=== PATIENT | female | born 1965 | race Two or more races ===

== ENCOUNTER 2024-02-13 14:24 | Outpatient (CLI) | payer BC, SELFPAY ==
--- OUTSIDE RECORDS SUMMARY | 2024-02-13 14:27 | XMS_ITS | Referral Summary ---
Author Organization [facility] Address [address] [place] [address] Care Team Providers Care Exchange Underwriting Consultant Name Role Phone Aye Morales M.D. Primary Care Provider Source Comments Patient records contain information from all sites at [facility]. For routine questions regarding patient records, call [phone] during business hours, M-F 8:00 AM - 5:00 PM Central Time. Record requests for emergency care only can be directed to [phone] at any time.[facility] Encounters Date Type Department Care Team Description 12/18/2023 Clinical Communication Department of Family Medicine, [facility], in [place], [place] [address] [address] Aye Morales M.D. 12/05/2023 Clinical Communication Department of Family Medicine, [facility], in [place], [place] [address] [address] Aye Morales M.D. Health Maintenance 12/05/2023 Orders Only Department of Family Medicine, [facility], in [place], [place] [address] [address] Aye Morales M.D. Diabetes Mellitus Type 2 Hyperglycemia (HCC) (Primary Dx) 12/04/2023 Orders Only [facility] SELF TEST [facility] [address] [id number] Aye Morales M.D. Screening Cancer Colon 11/27/2023 Clinical Communication Department of Family [facility], [facility], in [place], [place] [address] [address] Lashanda Ashton R.M.A. Quality (Diabetes) 11/23/2023 Clinical Communication Department of Family Medicine, [facility], in [address] [address] Aye Morales M.D. Results (Labs) 11/23/2023 12:48 PM CDT - 11/23/2023 11:59 PM CDT Hospital Encounter Department of Laboratory Medicine in [address] [address] Aye Morales M.D. Diabetes Mellitus Type 2 Hyperglycemia (HCC); Hyperlipidemia Discharge Disposition: Home or Self Care 11/23/2023 11:30 AM CDT Comprehensive Visit Department of [facility], [facility], in [address] [address] Aye Morales M.D. Diabetes Mellitus Type 2 Hyperglycemia (HCC) (Primary Dx); General Medical Examination Adult; Hyperlipidemia; Rosacea; Pain Back Thoracic 11/20/2023 Orders Only [facility] SELF TEST [facility] [address] [place] [id number] Aye Morales M.D. Screening Cancer Colon from Last 3 Months Allergies No known active allergies Medications Medication Sig Dispensed Refills Start Date End Date Status atorvastatin (LIPITOR) 20 mg tablet Take 20 mg by mouth daily. 09/25/2023 Active azelaic acid (FINACEA) 15 % gel 10/26/2023 Active doxycycline (MONODOX) 50 mg capsule TAKE 1 CAPSULE BY MOUTH ONCE A DAY FOR ONE MONTH. TAKE WITH FOOD AND PROBIOTIC 10/26/2023 Active famotidine (PEPCID) 20 mg tablet Take 20 mg by mouth 2 (two) times a day. 09/25/2023 Active glipiZIDE (GLUCOTROL XL) 2.5 mg 24 hr tablet TAKE 2 TABLETS BY MOUTH EVERY DAY FOR DIABETES 09/25/2023 Active metFORMIN (GLUCOPHAGE) 500 mg tablet TAKE 2 TABLETS BY MOUTH EVERY DAY IN THE EVENING WITH MEAL FOR 2 WEEKS 09/04/2023 Active sulfacetamide sodium-sulfur (AVAR) 10-5 % (w/w) cleanser 11/14/2023 Act miguel Active Problems Problem Noted Date Diagnosed Date Diabetes Mellitus Type 2 Hyperglycemia Hyperlipidemia 11/23/2023 Rosacea 11/23/2023 Immunizations Name Administration Dates Next Due SARS-COV-2 (COVID-19) - PFIZ ER (Discontinued)(12 years or older) 10/29/2020,10/08/2020 Tdap 11/10/2023 Social History Tobacco Use Types Packs/Day Years Used Date Smoking Tobacco: Never Smokeless Tobacco: Never Dental Answer Date Recorded Dental: Regular Dentist Unknown 10/16/19 Sex and Gender Information Value Date Recorded Sex Assigned at Not on file Gender Identity Not on file Sexual Orientation Not on file Last Filed Vital Signs Vital Sign Reading Time Taken Comments Blood Pressure 123/80 11/23/2023 11:32 AM CDT Pulse 66 11/23/2023 11:32 AM CDT Temperature 36.6 ??C (97.8 ??F) 11/23/2023 11:32 AM C DT Respiratory Rate - - Oxygen Saturation - - Inhaled Oxygen Concentration - - Weight 64.9 kg (143 lb 1.3 oz) 11/23/2023 11:32 AM CDT Height 148 cm (4' 10.27) 11/23/2023 11:32 AM CD T Body Mass Index 29.63 11/23/2023 11:32 AM CDT Plan of Treatment Not on file Procedures Procedure Name Priority Date/Time Associated Diagnosis Comments LIPID PANEL, S Routine 11/23/2023 12:55 PM CDT Hyperlipidemia HEMOGLOBIN A1C, B Routine 11/23/2023 12: 55 PM CDT Diabetes Mellitus Type 2 Hyperglycemia (HCC) BASIC METABOLIC PANEL, S/P Routine 09/01/2013 12:22 PM CDT from Last 3 Months or Most Recently Relevant to Health Maintenance Results * (ABNORMAL) Lipid Panel (11/23/2023 12:55 PM CDT) Triglycerides 240(H) mg/dL 11/23/2023 1:34 PM CDT OWAT Comment: ----REFERENCE VALUE---- Normal: <150 mg/dL Borderline High: 150-199 mg/dL High: 200-499 mg/dL Very High: > or =500 mg/dL Cholesterol, Total 208(H) mg/dL 2023 1:34 PM CDT OWAT Comment: ----REFERENCE VALUE---- Desirable: < 200 mg/dL Borderline High: 200 - 239 mg/dL High: > or = 240 mg/dL Cholesterol, LDL, Calculated 112 mg/dL 11/23/2023 1:34 PM CDT OWAT Comment: ----REFERENCE VALUE---- Desirable: <100 mg/dL Above Desirable: 100-129 mg/dL Borderline High: 130-159 mg/dL High: 160-189 mg/dL Very High: >=190 mg/dL ----ADDITIONAL INFORMATION---- LDL cholesterol calculated using the Keith/NIH equation. Cholesterol, HDL 55 >=50 mg/dL 11/23/19 1:34 PM CDT OWAT Cholesterol, Non-HDL, Calculated 153 mg/dL 11/23/2023 1:34 PM CDT OWAT Comment: ----REFERENCE VALUE---- Desirable: <130 mg/dL Above Desirable: 130-159 mg/dL Borderline High: 160-189 mg/dL High: 190-219 mg/dL Very High: > or =220 mg/dL Fasting (8 HR or more) No 11/23/2023 12:55 PM CDT OWAT Blood (Blood, Venous) 11/23/2023 12:55 PM CDT 11/23/2023 12:59 PM CDT Aye Morales M.D. LAB BLOOD ADD-ON [facility] [address] [place] [address], [place] OWAT [facility] in [place] [address] [place] [address] * (ABNORMAL) Hemoglobin A1c (11/23/2023 12:55 PM CDT) Hemoglobin A1c, B 10.0(H) 4.2 - 5.6 % 11/23/2023 1:54 PM CDT OW Comment: Hemoglobin A1c values greater than or equal to 6.5 percent are diagnostic for diabetes mellitus. ??Diagnosis should be confirmed by repeat testing. ??In diabetic patients, HbA1c goals should be discussed with healthcare provider. Blood (Blood, Venous) 11/23/2023 12:55 PM CDT 11/23/2023 12:59 PM CDT Aye Morales M.D. LAB BLOOD ADD-ON [facility] [address] [place] [address], [place] OWAT [facility] in [place] [address] [place] [address] * (ABNORMAL) BMP (Basic Metabolic Panel) (09/01/2013 12:22 PM CDT) Sodium, S 138 135 - 145 MMOLL POWERCHART Potassium, S 4.0 3.5 - 5.1 MMOLL POWERCHART Chloride, S 103 98 - 107 MMOLL POWERCHART CO2 Total 30(H) 22 - 29 MMOLL POWERCHART Glucose 113 70 - 140 MGDL POWERCHART BUN (Blood Urea Nitrogen), S 12 6 - 24 MGDL POWERCHART Creatinine 0.8 0.5 - 1.0 MGDL POWERCHART Calcium, Total, S 9.7 8.6 - 10.2 MGDL POWERCHART Anion Gap 5(L) 7 - 15 MMOLL POWERCHART HXeGFR (MDRD) >60 >=60 POWERCHART Comment: Results are in mL/min/1.73m squared CKD Stage I: ? GFR > 90 CKD Stage II: ?GFR 60 to 89 CKD Stage III: ? GFR 30 to 59 CKD Stage IV: ? GFR 15 to 29 CKD Stage V: ?GFR < 15 or Dialysis eGFR Black/ >60 >=60 POWERCHART Blood 09/01/2013 12:2 2 PM CDT Historical Provider LAB BLOOD ADD-ON POWERCHART from Last 3 Months or Most Recently Relevant to Health Maintenance Care Teams Exchange Underwriting Consultant Relationship Specialty Start Date End Date Aye Morales M.D. [address] [place] [phone] PCP - General Family Medicine 11/19/23
--- OUTSIDE RECORDS SUMMARY | 2024-02-13 14:27 | XMS_ITS | Encounter Summary ---
Author Organization [facility] Address [address] [place] [address] Care Team Providers Care Interlocking Tower Operator Name Role Phone Aye Morales M.D. Primary Care Provider Encounter Details Date Type Department Care Team (Latest Contact Info) Description 11/23/2023 12:48 PM CDT - 11/23/2023 11:59 PM CDT Hospital Encounter Department of Laboratory Medicine in [place], [place] [address] [place] [phone] Aye Morales M.D. [address] [place] [address] Diabetes Mellitus Type 2 Hyperglycemia (HCC); Hyperlipidemia Discharge Disposition: Home or Self Care Social History Tobacco Use Types Packs/Day Years Used Date Smoking Tobacco: Never Smokeless Tobacco: Never Dental Answer Date Recorded Dental: Regular Dentist Unknown 10/16/19 21 Sex and Gender Information Value Date Recorded Sex Assigned at Not on file Gender Identity Not on file Sexual Orientation Not on file documented as of this encounter Medications at Time of Discharge Medication Sig Dispensed Refills Start Date End Date atorvastatin (LIPITOR) 20 mg tablet Take 20 mg by mouth daily. 09/25/2023 azelaic acid (FINACEA) 15 % gel 10/26/2023 doxycycline (MONODOX) 50 mg capsule TAKE 1 CAPSULE BY MOUTH ONCE A DAY FOR ONE MONTH. TAKE WITH FOOD AND PROBIOTIC 10/26/2023 famotidine (PEPCID) 20 mg tablet Take 20 mg by mouth 2 (two) times a day. 09/25/2023 glipiZIDE (GLUCOTROL XL) 2.5 mg 24 hr tablet TAKE 2 TABLETS BY MOUTH EVERY DAY FOR DIABETES 09/25/2023 metFORMIN (GLUCOPHAGE) 500 mg tablet TAKE 2 TABLETS BY MOUTH EVERY DAY IN THE EVENING WITH MEAL FOR 2 WEEKS 09/04/2023 sulfacetamide sodium-sulfur (AVAR) 10-5 % (w/w) cleanser 11/14/2023 documented as of this encounter Plan of Treatment Not on file documented as of this encounter Procedures Procedure Name Priority Date/Time Associated Diagnosis Comments LIPID PANEL, S Routine 11/23/2023 12:55 PM CDT Hyperlipidemia HEMOGLOBIN A1C, B Routine 11/23/2023 12: 55 PM CDT Diabetes Mellitus Type 2 Hyperglycemia (HCC) documented in this encounter Results * (ABNORMAL) Lipid Panel (11/23/2023 12:55 [...] CDT Aye Morales M.D. LAB BLOOD ADD-ON Performing Organization Address [facility] Co de Phone Number [facility] [address] [place] [address], [place] OWAT [facility] in [place] [address] [place] [address] * (ABNORMAL) Hemoglobin A1c (11/23/2023 12:55 PM CDT) Hemoglobin A1c, B 10.0(H) 4.2 - 5.6 % 11/23/2023 1:54 PM CDT OWAT Comment: Hemoglobin A1c values greater than or equal to 6.5 percent are diagnostic for diabetes mellitus. ??Diagnosis should be confirmed by repeat testing. ??In diabetic patients, HbA1c goals should be discussed with healthcare provider. Blood (Blood, Venous) 11/23/2023 12:55 PM CDT 11/23/2023 12:59 PM CDT Aye Morales M.D. LAB BLOOD ADD-ON Performing Organization Address [facility] Co de Phone Number [facility] [address] [place] [address], [place] OWAT [facility] in [place] [address] [place] [address] documented in this encounter Visit Diagnoses Diagnosis Diabetes Mellitus Type 2 Hyperglycemia (HCC) Hyperlipidemia documented in this encounter Care Teams Interlocking Tower Operator Relationship Specialty Start Date End Date Aye Morales M.D. [address] [place] [address] PCP - General Family Medicine 11/19/23 documented as of this encounter
--- OUTSIDE RECORDS SUMMARY | 2024-02-13 14:27 | XMS_ITS | Encounter Summary ---
Author Organization [facility] Address [address] [place] [address] Care Team Providers Care Gas Pumper Name Role Phone Aye Morales M.D. Primary Care Provider Encounter Details Date Type Department Care Team (Late st Contact Info) Description 12/18/2023 Clinical Communication Department of Family Medicine, [facility], in [place], [place] [address], [place] [address] Aye Morales M.D. [address] [place] [address] Social History Tobacco Use Types Packs/Day Years Used Date Smoking Tobacco: Never Smokeless Tobacco: Never Dental Answer Date Recorded Dental: Regular Dentist Unknown 10/16/19 21 Sex and Gender Information Value Date Recorded Sex Assigned at Not on file Gender Identity Not on file Sexual Orientation Not on file documented as of this encounter Miscellaneous Notes * Telephone Encounter - Kristine Medrano - 12/18/2023 2:44 PM CDT I reached out to the patient today via phone call and I was unable to reach the patient. This is the 2nd contact by the [facility] team to schedule preventive care services. The preventive care topics I outreached about include: Cervical Cancer Screening Hemoglobin A1C and Urine, Albumin Mammogram The outcome of this communication includes: Left Message The [facility] team will contact the patient again next time they're due for preventive care. Next Primary Care appointment: does not have a visit scheduled in Primary Care within the next 3 months Last appointment with their PCP: 11/23/2023 Additional services offered: Harriett Hwang Preventative Health Specialist documented in this encounter Plan of Treatment Not on file documented as of this encounter Visit Diagnoses Not on filedocumented in this encounter Care Teams Gas Pumper Relationship Specialty Start Date End Date Aye Morales M.D. [address] [place] [phone] PCP - General Family Medicine 11/19/23 documented as of this encounter
--- OUTSIDE RECORDS SUMMARY | 2024-02-13 14:27 | XMS_ITS | Encounter Summary ---
Author Organization [facility] Address [address] [place] [address] Care Team Providers Care Technology Coordinator Name Role Phone Aye Morales M.D. Primary Care Provider Encounter Details Date Type Department Care Team (Late st Contact Info) Description 12/05/2023 Orders Only Department of Family Medicine, [facility] [place], in [place], [place] [address] [place] [phone] Aye Morales M.D. [address], [place] [address] Diabetes Mellitus Type 2 Hyperglycemia (HCC) (Primary Dx) Social History Tobacco Use Types Packs/Day Years Used Date Smoking Tobacco: Never Smokeless Tobacco: Never Dental Answer Date Recorded Dental: Regular Dentist Unknown 10/16/19 21 Sex and Gender Information Value Date Recorded Sex Assigned at Not on file Gender Identity Not on file Sexual Orientation Not on file documented as of this encounter Plan of Treatment Scheduled Orders Name Type Priority Associated Diagnoses Orde r Schedule Albumin, Random, Urine Lab Routine Diabetes Mellitus Type 2 Hyperglycemia (HCC) Expected: 12/05/2023, Expires: 03/06/2025 documented as of this encounter Visit Diagnoses Diagnosis Diabetes Mellitus Type 2 Hyperglycemia (HCC)- Primary documented in this encounter Care Teams Technology Coordinator Relationship Specialty Start Date End Date Aye Morales M.D. [address] [phone] PCP - General Family Medicine 11/19/23 documented as of this encounter
--- OUTSIDE RECORDS SUMMARY | 2024-02-13 14:27 | XMS_ITS | Encounter Summary ---
Author Organization [facility] Address [address] [place] [address] Care Team Providers Care Tracing Lathe Set Up Operator Name Role Phone Aye Morales M.D. Primary Care Provider Reason for Visit * Reason Onset Date Comments Health Maintenance 12/05/2023 Encounter Details Date Type Department Care Team (Latest Contact Info) Description 12/05/2023 Clinical Communication Department of Family Medicine, [facility], in [place], [place] [address] [place] [address] Aye Morales M.D. [address] [place] [address] Health Maintenance Social History Tobacco Use Types Packs/Day Years Used Date Smoking Tobacco: Never Smokeless Tobacco: Never Dental Answer Date Recorded Dental: Regular Dentist Unknown 10/16/19 21 Sex and Gender Information Value Date Recorded Sex Assigned at Not on file Gender Identity Not on file Sexual Orientation Not on file documented as of this encounter Miscellaneous Notes * Telephone Encounter - Kristine Medrano - 12/05/2023 11:40 AM CDT I reached out to the patient today via phone call and letter and I was unable to reach the patient.This is the 1st contact by the [facility] team to schedule preventive care services. The preventive care topics I outreached about include: Cervical Cancer Screening Hemoglobin A1C and Urine, Albumin Mammogram The outcome of this communication includes: Left Message and Sent Letter The [facility] team will contact the patient again in 2 weeks. Next Primary Care appointment: does not have a visit scheduled in Primary Care within the next 3 months Last appointment with their PCP: 11/23/2023 Additional services offered: Harriett Hwang Preventative Health Specialist documented in this encounter Plan of Treatment Not on file documented as of this encounter Visit Diagnoses Not on filedocumented in this encounter Care Teams Tracing Lathe Set Up Operator Relationship Specialty Start Date End Date Aye Morales M.D. [address] [place] [phone] PCP - General Family Medicine 11/19/23 documented as of this encounter
--- OUTSIDE RECORDS SUMMARY | 2024-02-13 14:27 | XMS_ITS ---
Author Organization [facility] Address [address] [place] [address] Care Team Providers Care Generator Assembler Name Role Phone Unavailable Unavailable Unavailable Surgery Details Not on file Complications Check Surgery Details section. Procedure Estimated Blood Loss Check Surgery Details section. Procedure Findings Check Surgery Details section. Procedure Specimens Taken Check Surgery Details section.
--- OUTSIDE RECORDS SUMMARY | 2024-02-13 14:27 | XMS_ITS | Clinical Summary ---
Author Organization Consumer Agent Portal (CAP) [facility] Address [place], [place] [address] Care Team Providers Care Waiter/Waitress Economy Class Name Role Phone Jaja Garcia RN, HEARING THERAPY DIRECTOR Primary Care Provide r Allergies No known active allergies Active Problems Problem Noted Date Diagnosed Date Obesity, unspecified 05/20/2012 Family History Medical History Relation Name Comments Cancer-breast No Family History Relation Name Status Comments Brother 1 Alive Brother 2 Alive Brother 3 Alive Brother 4 Alive Father Alive Maternal Grandfather Maternal Grandmother Mother Alive Paternal Grandfather Paternal Grandmother Sister 1 Alive Sister 2 Alive Sister 3 Alive Sister 4 Alive Sister 5 Alive Sister 6 Alive Social History Tobacco Use Types Packs/Day Years Used Date Smoking Tobacco: Never Smokeless Tobacco: Never Alcohol Use Standard Drinks/Week Comments No 0 (1 standard drink = 0.6 oz pur e alcohol) Sex and Gender Information Value Date Recorded Sex Assigned at Not on file Gender Identity Not on file Sexual Orientation Not on file Obstetrics History Last Filed Vital Signs Vital Sign Reading Time Taken Comments Blood Pressure 120/64 05/20/2012 9:02 AM ESCROW PROCESSOR Pulse 72 05/20/2012 9:02 AM ESCROW PROCESSOR Temperature - - Respiratory Rate 14 05/20/2012 9:02 AM ESCROW PROCESSOR Oxygen Saturation - - Inhaled Oxygen Concentration - - Weight 60.3 kg (133 lb) 05/20/2012 9:02 AM ESCROW PROCESSOR Height 135.5 cm (4' 5.34) 05/20/2012 9:02 AM CS T Body Mass Index 32.87 05/20/2012 9:02 AM ESCROW PROCESSOR Plan of Treatment Health Maintenance Due Date Last Done Comments Tdap 08/26/1978 Depression screening for age 12+ 1979 HIV for age 15-65 08/26/1982 BMI (ht and wt on same day) for age 18+ 08/26/1985 Hepatitis C screening for age 18-79 08/26/1985 Tetanus booster 1987 Zoster (shingles) series for age 50+ (1 of 2) 08/26/2017 Mammogram for age 45-75 10/08/2021 10/09/19 21, 05/28/2012, 08/19/2010 COVID-19 vaccine series (2022-24 season) 2024 10/29/2020, 10/08/2020 Influenza for age 50-64 02/10/2024 Fecal testing non-DNA (FIT,FOBT,iFOBT) for age 45-75 06/14/2024 06/14/2023, 08/06/2020 Pap test for age 21-65 03/08/2025 , 03/08/2022, 04/15/2018, Additional history exists Lipids for age 45-75 06/12/2028 06/12/2023, 01/09/2023, 10/12/2022, Additional history exists Pneumococcal series for age 6-64 Aged Out No longer eligible based on patient's age to complete this topic Procedures Procedure Name Priority Date/Time Associated Diagnosis Comments OCCULT BLOOD IFOBT STOOL Routine 06/14/2023 10:30 AM ESCROW PROCESSOR LIPID PANEL Routine 06/12/2023 9:44 AM ESCROW PROCESSOR HPV THIN PREP Routine 03/08/2022 10:00 AM CDT XR MAMMO YVES BILAT SCREEN Routine 10/08/2020 10:41 AM CDT Encounter for screening mammogram for malignant neoplasm of breast from Last 3 Months or Most Recently Relevant to Health Maintenance Results * OCCULT BLOOD IFOBT STOOL (06/14/2023 10:30 AM ESCROW PROCESSOR) STOOL BLOOD ,IFOBT Negative Negative 06/15/2023 1:16 PM ESCROW PROCESSOR [facility] Stool STOOL SPECIMEN / Unknown 06/14/2023 10:30 AM ESCROW PROCESSOR 06/15/2023 1:07 PM ESCROW PROCESSOR Jaja Garcia RN, HEARING THERAPY DIRECTOR LABORATORY [facility] [address] [place] [address] * (ABNORMAL) LIPID PANEL (06/12/2023 9:44 AM ESCROW PROCESSOR) CHOLESTEROL,TOTAL 233(H) 100 - 199 mg/dL 06/13/2023 12:35 PM ESCROW PROCESSOR [facility] Comment: Cholesterol, Total Reference Ranges Desirable <200 mg/dL Borderline 200-239 mg/dL High >=240 mg/dL TRIGLYCERIDES 313(H) <150 mg/dL 06/13/2023 12:35 PM ESCROW PROCESSOR [facility] HDL CHOLESTEROL 53 >40 mg/dL 12:35 PM ESCROW PROCESSOR [facility] NON-HDL CHOLESTEROL 180(H) <145 mg/dl 06/13/2023 12:35 PM ESCROW PROCESSOR [facility] CHOL/HDL RATIO 4.40 <4.50 06/13/2023 12:35 PM ESCROW PROCESSOR [facility] LDL CHOLESTEROL 117 <=130 mg/dL 06/13/2023 12:35 PM ESCROW PROCESSOR [facility] VLDL CHOLESTEROL 63(H) <=30 mg/dL 06/13/2023 12:35 PM ESCROW PROCESSOR [facility] PROVIDER ORDERED STATUS RANDOM 06/13/2023 12:35 PM ESCROW PROCESSOR [facility] Blood BLOOD SPECIMEN / Unknown 06/12/2023 9:44 AM ESCROW PROCESSOR 06/12/2023 3:17 PM ESCROW PROCESSOR Jaja Garcia RN, HEARING THERAPY DIRECTOR CHEMISTRY [facility] [address] [place] [address], [facility] [address] [place] [address] * HPV HIGH RISK (03/08/2022 10:00 AM CDT) TYPE 16 Negative Negative 03/14/2022 11:45 AM CDT [facility] TYPE 18 Negative Negative 03/14/2022 11:45 AM CDT [facility] OTHER HIGH RISK TYPES Negative Negative 03/14/2022 11:45 AM CDT [facility] Other (Other) 03/08/2022 10: 00 AM CDT 03/13/2022 8:11 AM CDT Narrative [facility] - 03/14/2022 11:45 AM CDT HPV types 16, 18, 31, 33, 35, 39, 45, 51, 52, 56, 58, 59, 66 and 68 DNA were undetectable or below the pre-set threshold. Methodology: Embarkly Chuck 4800 HPV Test Lolita Leon NP MICROBIOLOGY [facility] [address] [place] [address], [place] * XR MAMMO YVES BILAT SCREEN (10/08/2020 10:41 AM CDT) Anatomical Region Laterality Modality BREASTS, Breast Left, Breast Right Bilateral Mammography Impressions 10/08/2020 11:31 AM CDT ??There is no radiographic evidence for malignancy. ??Recommend annual mammograms. MAMMOGRAM ASSESSMENT: ??ACR 2 Benign PATIENTS: You will also receive a letter with your examination results in an easy to read format. ??If you have questions about your results, please contact your referring provider. Narrative 10/08/2020 11:31 AM CDT XR MAMMO YVES BILAT SCREEN [[id number]] CLINICAL HISTORY: ??This is an asymptomatic 55 y.o. patient. INDICATION FOR EXAM: Mammogram Screening. TECHNIQUE: CC & MLO views were obtained. ??This digital study was evaluated with the assistance of Computer-Aided Detection. Breast Tomosynthesis was used in interpretation. COMPARISON FILMS: Yes 05/28/12 Consumer Agent Portal (CAP) ?? FINDINGS: ??The breasts are heterogeneously dense, which may obscure small masses. ??No suspicious masses or microcalcifications. ??Benign appearing calcifications within both breasts. Jaja Gacria RN, HEARING THERAPY DIRECTOR MAMMO from Last 3 Months or Most Recently Relevant to Health Maintenance Care Teams Waiter/Waitress Economy Class Relationship Specialty Start Date End Date Jaja Garcia RN, HEARING THERAPY DIRECTOR PCP - General Nurse Practitioner 04/15/18
--- OUTSIDE RECORDS SUMMARY | 2024-02-13 14:27 | XMS_ITS | Encounter Summary ---
Author Organization [facility] Address [address] [place] [address] Care Team Providers Care Lpn Per Diem Name Role Phone Aye Morales M.D. Primary Care Provider Encounter Details Date Type Department Care Team (Late st Contact Info) Description 11/20/2023 Orders Only [facility] SELF [facility] [address] [place] [id number] Aye Morales M.D. [address] [place] [phone] Screening Cancer Colon Social History Tobacco Use Types Packs/Day Years [...] Type Priority Associated Diagnoses Orde r Schedule Cologuard - Sent Out Lab Lab Routine Screening Cancer Colon Expected: 12/04/2023, Expires: 02/19/2025 documented as of this encounter Visit Diagnoses Diagnosis Screening Cancer Colon documented in this encounter Care Teams Lpn Per Diem Relationship Specialty Start Date End Date Aye Morales M.D. [address] [phone] PCP - General Family Medicine 11/19/23 documented as of this encounter
--- OUTSIDE RECORDS SUMMARY | 2024-02-13 14:27 | XMS_ITS | Encounter Summary ---
Author Organization [facility] Address [address] [place] [address] Care Team Providers Care Study Director Name Role Phone Aye Morales M.D. Primary Care Provider Reason for Visit * Reason Onset Date Comments Quality 11/27/2023 Diabetes Encounter Details Date Type Department Care Team (Latest Contact Info) Description 11/27/2023 Clinical Communication Department of Family Medicine, [facility], in [place], [place] [address] [place] [address] Lashanda Ashton, R.M.A. Quality (Diabetes) Social History Tobacco Use Types Packs/Day Years Used Date Smoking Tobacco: Never Smokeless Tobacco: Never Dental Answer Date Recorded Dental: Regular Dentist Unknown 10/16/19 21 Sex and Gender Information Value Date Recorded Sex Assigned at Not on file Gender Identity Not on file Sexual Orientation Not on file documented as of this encounter Miscellaneous Notes * Telephone Encounter - Lashanda Ashton, R.MLennyA. - 11/27/2023 3:31 PM CDT In reviewing the patient's diabetic quality metrics, I have found that the patient is not meeting all of their goals. A1C control not met Orders are not entered. Pended A1c. documented in this encounter Plan of Treatment Scheduled Orders Name Type Priority Associated Diagnoses Orde r Schedule Hemoglobin A1c Lab Routine Diabetes Mellitus Type 2 Hyperglycemia (HCC) Expected: 11/29/2023, Expires: 02/26/2025 documented as of this encounter Visit Diagnoses Diagnosis Diabetes Mellitus Type 2 Hyperglycemia (HCC)- Primary documented in this encounter Care Teams Study Director Relationship Specialty Start Date End Date Aye Morales M.D. [address] [place] [phone] PCP - General Family Medicine 11/19/23 documented as of this encounter
--- OUTSIDE RECORDS SUMMARY | 2024-02-13 14:27 | XMS_ITS | Encounter Summary ---
Author Organization [facility] Address [address] [place] [address] Care Team Providers Care Tool Liaison Name Role Phone Aye Morales M.D. Primary Care Provider Reason for Visit * Reason Onset Date Comments Results 11/23/2023 Labs Encounter Details Date Type Department Care Team (Latest Contact Info) Description 11/23/2023 Clinical Communication Department of Family Medicine, [facility], in [place], [place] [address], [place] [address] Aye Morales M.D. [address], [place] [address] Results (Labs) Social History Tobacco Use Types Packs/Day Years Used Date Smoking Tobacco: Never Smokeless Tobacco: Never Dental Answer Date Recorded Dental: Regular Dentist Unknown 10/16/19 21 Sex and Gender Information Value Date Recorded Sex Assigned at Not on file Gender Identity Not on file Sexual Orientation Not on file documented as of this encounter Miscellaneous Notes * Telephone Encounter - Leti Lewis L.P.NLenny - 12/04/2023 9:01 AM CDT Left message for patient to return call to clinic. Does the patient need to speak to nursing? yes Action needed: Dr. Aye Morales said, A1c has improved after resuming your medication from previous 11.9% in September 2023 to a current level of 10%. This is a good improvement over a short period of time and that number does include sometime that you were not taking medication so we are moving in the right direction. I do advise checking your blood sugar before the follow up in 3 months, at timesfasting and other x2 hours after meals. A goal for fasting is for your sugar to be less than 130. It would be ideal to have your sugar less than 180 at the 2 hour after a meal lorie. Your triglycerides are elevated. This is often seen in diabetes when sugar is high. Limit processedfoods in saturated fats. Starting and omega-3 fatty acid supplement can help with this. The most important thing that will lower this is improving your glucose control. Your LDL is currently a bit over goal at 112. With diabetes we want this to be less than 100 but for now this is okay as you have just recently resumed your medications. Nice to meet you today and we will see you in 3 months. The most effective medication that will lower your A1c is healthy food choices and regular physical activity. * Telephone Encounter - Shannan Pandya L.P.N. - 11/26/2023 8:[address] Aye Morales said, A1c has improved after resuming your medication from previous 11.9% in September 2023 to a current level of 10%. This is a good improvement over a short period of time and that number does include sometime that you were not taking medication so we are moving in the right direction. I do advise checking your blood sugar before the follow up in 3 months, at times fasting and other x2 hours after meals. A goal for fasting is for your sugar to be less than 130. It would be ideal to have your sugar less than 180 at the 2 hour after a meal lorie. Your triglycerides are elevated. This is often seen in diabetes when sugar is high. Limit processedfoods in saturated fats. Starting and omega-3 fatty acid supplement can help with this. The most important thing that will lower this is improving your glucose control. Your LDL is currently a bit over goal at 112. With diabetes we want this to be less than 100 but for now this is okay as you have just recently resumed your medications. Nice to meet you today and we will see you in 3 months. The most effective medication that will lower your A1c is healthy food choices and regular physical activity. documented in this encounter Plan of Treatment Not on file documented as of this encounter Visit Diagnoses Not on filedocumented in this encounter Care Teams Tool Liaison Relationship Specialty Start Date End Date Aye Morales M.D. [address] [place] [phone] PCP - General Family Medicine 11/19/23 documented as of this encounter
--- OUTSIDE RECORDS SUMMARY | 2024-02-13 14:27 | XMS_ITS | Encounter Summary ---
Author Organization [facility] Address [address] [place] [address] Care Team Providers Care Small Craft Operator Name Role Phone Aye Morales M.D. Primary Care Provider Reason for Referral * Outpatient (Routine) - Authorized Specialty Diagnoses / Procedures Referred By Melissa west Referred To Contact Family Medicine Aye Morales M.D. [address] [phone] [facility] Region Referral ID Status Reason Start Date Expiration Date V isits Requested Visits Authorized [id number] Authorized 11/23/2023 05/24/2025 1 1 * Outpatient (Routine) - Authorized Specialty Diagnoses / Procedures Referred By Melissa t Referred To Contact Diagnoses General Medical Examination Adult Procedures BI Breast Screening Bilateral with Tomosynthesis Aye Morales M.D. [address] [place] [phone] [facility] Region Referral ID Status Reason Start Date Expiration Date V isits Requested Visits Authorized [id number] Authorized 11/23/2023 11/22/2024 1 1 * Outpatient (Routine) - Pending Review Specialty Diagnoses / Procedures Referred By Contac t Referred To Contact Diagnoses General Medical Examination Adult Procedures Colonoscopy Aye Moralse M.D. [address] [place] [phone] [facility] Region Referral ID Status Reason Start Date Expiration Date V isits Requested Visits Authorized [id number] Pending Review 11/23/2023 11/22/2024 1 1 Reason for Visit * Reason Comments Establish Care * Appointment Request (Routine) - Closed Specialty Diagnoses / Procedures Referred By Melissa t Referred To Contact Family Medicine Referral ID Status Reason Start Date Expiration Date Visits Re quested Visits Authorized [id number] Closed 11/19/2023 11/18/2024 1 1 Encounter Details Date Type Department Care Team (Latest Contact Info) Description 11/23/2023 11:30 AM CDT Comprehensive Visit Department of Family Medicine, [facility], in [place], [place] [address] [place] [phone] Aye Morales M.D. [address] [place] [address] Diabetes Mellitus Type 2 Hyperglycemia (HCC) (Primary Dx); General Medical Examination Adult; Hyperlipidemia; Rosacea; Pain Back Thoracic Social History Tobacco Use Types Packs/Day Years Used Date Smoking Tobacco: Never Smokeless Tobacco: Never Dental Answer Date Recorded Dental: Regular Dentist Unknown 10/16/19 21 Sex and Gender Information Value Date Recorded Sex Assigned at Not on file Gender Identity Not on file Sexual Orientation Not on file documented as of this encounter Last Filed Vital Signs Vital Sign Reading [...] Mass Index 29.63 11/23/2023 11:32 AM CDT documented in this encounter Patient Instructions * Patient Instructions* Aye Morales M.D. - 11/23/2023 11:30 AM CDT Ensure you are getting at least 800 IU Vit D daily. I recommend taking a Vitamin D with [place] 3 Fatty Acids. Make sure you get 1200mg Calcium daily and engage in regular intense physical activity. Keep taking your diabetes medications. Follow-up for a diabetic visit in 3 months. documented in this encounter H&P Notes * Aye Morales M.D. - 11/23/2023 11:30 AM CDT SUBJECTIVE CHIEF COMPLAINT/REASON FOR VISIT Annual health physical. HISTORY OF PRESENT ILLNESS Jenni Pratt is a 58 y.o. female who presents to the clinic today for her annual health physical. Visit is assisted today by an educational interpreter. She is here to establish care today. Previously has been seen at [facility] in [place]. She was recently without health insurance so stopped taking her diabetic medications and cholesterol medication for 2 months. Most recent A1c in 09/2023 was elevated at 11.9% and she resumed taking all of her prescription medications immediately thereafter. Reviewed medical history today to include diabetes, hyperlipidemia, rosacea. Lifetime nonsmoker. Does not drink alcohol. No history of abnormal Pap smears. Last mammogram was in 2020. No family history of cancer. No prior colonoscopy. Patient states she received a tetanus shot in [facility] in 2022. She does note some left upper back periscapular muscle tension intermittently. There are no further concerns at this time. REVIEW OF SYSTEMS Please see HPI for pertinent positives. HEALTHCARE MAINTENANCE Mammogram : Ordered today. Pap smear NILM 2021.. Colonoscopy : Ordered today. Fasting lipid panel :Nonfasting lipid today. There is no immunization history for the selected administration types on file for this patient. MEDICATIONS, ALLERGIES, MEDICAL/SOCIAL/FAMILY HISTORY REVIEWED. OBJECTIVE Vitals: 11/23/23 1132 BP: 123/80 Patient Position: Sitting Pulse: 66 Temp: 36.6 ??C Height: 148 cm Weight: 64.9 kg TempSrc: Temporal Body mass index is 29.63 kg/m??. PHYSICAL EXAMINATION General: Alert and oriented x3. No apparent acute distress.. HEENT: Pupils equally round and reactive to light and accommodation. Extraocular movements are intact. Tympanic membranes are clear bilaterally. Oropharynx is free from any erythema or exudate. Neck: Supple without any lymphadenopathy. No thyromegaly. Nontender. Breasts: Examined. Reveal no evidence of any axillary lymphadenopathy. No lumps or lesions appreciated bilaterally. No overlying skin changes. No nipple discharge. Cardiovascular: Heart is regular rate and rhythm without any murmurs, rubs, or gallops. Respiratory: Lungs are clear to auscultation bilaterally. Back: No overlying skin changes or gross deformities. Left rhomboids slightly tender to palpation without defect. Gastrointestinal: The abdomen is soft, nontender, nondistended. Bowel sounds present in all quadrants. No hepatosplenomegaly. No masses appreciated. Genitourinary: Genital exam reveals normal external genitalia. Vaginal mucosa appears pink and moist. No cervical motion tenderness. No adnexal fullness or tenderness. Bladder bulging slightly endovaginal canal anteriorly. Extremities: No edema, 2+ peripheral pulses. Neurologic: Moves all extremities equally. DIAGNOSTICS Diabetic labs today ASSESSMENT / PLAN 1. General Medical Examination Adult 58-year-old female for annual physical. No prior colonoscopy, ordered today. Mammogram overdue, ordered today. No history of abnormal Paps, last Pap completed in 2021, next due 02/2027. Tetanus recommended but later patient states she received this in [facility] last year so we did not administer this today. Advise shingles vaccine. States she received a total of 5 vaccines last year and is uncertain of what they were; at a follow up visit we will recommend that she obtain this information priorto giving any further vaccines. Postmenopausal. Discussed recommended daily intake of calcium 1200 mg best through diet and 800 [employer] vitamin-D. Advised regular physical weight-bearing activity, especially given diabetes. - Colonoscopy; Future - BI Breast Screening Bilateral with Tomosynthesis; Future 2. Diabetes Mellitus Type 2 Hyperglycemia (HCC) Diabetes previously well-controlled but most recent A1c elevated at 11.9% in setting of not taking any medications for 2 months due to lack of insurance. Restarted medications 2 months ago so rechecklabs now and as long as improving we will recheck in 3 months. Follow up for diabetic visit in 3 months. Less as foot exam and status of eye exam at that time. - Hemoglobin A1c; Future 3. Hyperlipidemia Last LDL above goal of 100 in setting of stopping medications for 2 months. Has now restarted medications for 2 months, we will rechecked today and as long as improving we will hold on rechecking until 1 year from now. - Lipid Panel; Future 4. Rosacea Controlled with oral doxycycline and topical Finacea gel. 5. Back pain thoracic Cursory exam and HPI, mentioned at end of visit. Suspect tension and rhomboids versus mild strain. Discussed rolling shoulders and limiting asymmetric lifting; advised massage and heat. Note: A significant amount of time was spent with this patient today reconciling medication list via pad machine operator and reviewing medical history. documented in this encounter Plan of Treatment Scheduled Orders Name Type Priority Associated Diagnoses Orde r Schedule Colonoscopy GI Routine General Medical Examination Adult Expected: 11/23/2023, Expires: 02/22/2025 BI Breast Screening Bilateral with Tomosynthesis Imaging RAD - Routine (most inpatients and all outpatients) General Medical Examination Adult Expected: 11/23/2023, Expires: 02/22/2025 Scheduled Referrals Name Type Priority Associated Diagnoses Orde r Schedule Family Medicine office visit (clinic) Outpatient Referral Routine Expected: 02/23/2024, Expires: 02/22/2025 documented as of this encounter Results * (ABNORMAL) Lipid Panel [...] M.D. LAB BLOOD ADD-ON Performing Organization Address [facility] Co de Phone Number [facility] [address] [place] [phone], [facility] [place] [address] [place] [phone] * (ABNORMAL) Hemoglobin A1c (11/23/2023 12:55 PM [...] M.D. LAB BLOOD ADD-ON Performing Organization Address City/[facility]/ZIP Co de Phone Number [facility] [address] [place] [address], [facility] [place] [address] [place] [address] documented in this encounter Visit Diagnoses Diagnosis Diabetes Mellitus Type 2 Hyperglycemia (HCC)- Primary General Medical Examination Adult Hyperlipidemia Rosacea Pain Back Thoracic documented in this encounter Care Teams Small Craft Operator Relationship Specialty Start Date End Date Aye Morales M.D. [address] [place] [phone] PCP - General Family Medicine 11/19/23 documented as of this encounter
--- OUTSIDE RECORDS SUMMARY | 2024-02-13 14:27 | XMS_ITS | Encounter Summary ---
Author Organization [facility] Address [address] [place] [address] Care Team Providers Care Service Engine Repairer Name Role Phone Aye Morales M.D. Primary Care Provider [phone] Encounter Details Date Type Department Care Team (Late st Contact Info) Description 12/04/2023 Orders Only [facility] [address] [place] [phone] Aye Morales M.D. [address] [place] [address] Screening Cancer Colon Social History [...] Colon documented in this encounter Care Teams Service Engine Repairer Relationship Specialty Start Date End Date Aye Morales M.D. [address] [place] [address] PCP - General Family Medicine 11/19/23 documented as of this encounter
--- OUTSIDE RECORDS SUMMARY | 2024-02-13 14:27 | XMS_ITS | Clinical Summary ---
Author Organization [facility] Address [address] [place] [address] Care Team Providers Care Gathering Machine Setter Name Role Phone Aye Morales M.D. Primary Care Provider Source Comments Patient records contain information from all sites at [facility]. For routine questions regarding patient records, call [phone] during business hours, M-F 8:00 AM - 5:00 PM Central Time. Record requests for emergency care only can be directed to [phone] at any time.[facility] Allergies No known active allergies Medications Medication [...] Diagnosed Date Diabetes Mellitus Type 2 Hyperglycemia 4 Hyperlipidemia 11/23/2023 Rosacea 11/23/2023 Encounters Date Type Department Care Team Description 12/18/2023 Clinical Communication Department of Family Medicine, [facility], in [place], [place] [address] [place] [address] Aye Moarles M.D. 12/05/2023 Clinical Communication Department of Family [facility], [facility], in [place], [place] [address] [place] [phone] Aye Morales M.D. Health Maintenance 12/05/2023 Orders Only Department of Family Medicine, [facility], in [place], [place] [address] [place] [phone] Aye Morales M.D. Diabetes Mellitus Type 2 Hyperglycemia (HCC) (Primary Dx) 12/04/2023 Orders Only [facility] [address] [place] [address] Aye Morales M.D. Screening Cancer Colon 11/27/2023 Clinical Communication Department of [facility], [facility], in [place], [place] [address] [place] [phone] Lashanda Ashton R.M.A. Quality (Diabetes) 11/23/2023 12:48 PM CDT - 11/23/2023 11:59 PM CDT Hospital Encounter Department of Laboratory Medicine in [place], [place] [address] [place] [phone] Aye Morales M.D. Diabetes Mellitus Type 2 Hyperglycemia (HCC); Hyperlipidemia Discharge Disposition: Home or Self Care 11/23/2023 11:30 AM CDT Comprehensive Visit Department of Family Medicine, [facility], in [place], [place] [address] [place] [phone] Aye Morales M.D. Diabetes Mellitus Type 2 Hyperglycemia (HCC) (Primary Dx); General Medical Examination Adult; Hyperlipidemia; Rosacea; Pain Back Thoracic 11/23/2023 Clinical Communication Department of Family Medicine, [facility], in [place], [place] [address] [place] [phone] Aye Morales M.D. Results (Labs) 11/20/2023 Orders Only [facility] [address] [place] [phone] Aye Morales M.D. Screening Cancer Colon from Last 3 Months Immunizations Name Administration Dates Next Due SARS-COV-2 (COVID-19) - PFIZ ER (Discontinued)(12 years or older) 10/29/2020,10/08/2020 Tdap 11/10/2023 Family History Relation Name Status Comments Father Mother Social History Tobacco Use Types Packs/Day Years [...] 11/23/2023 11:32 AM CDT Plan of Treatment Health Maintenance Due Date Last Done Comments CT Colonography 1967 Cervical Cancer Screening 1967 Cologuard 1967 Colonoscopy 1967 Colorectal Cancer Screening 1967 Diabetic Office Visit with F oot Exam 1967 FIT 1967 HIV Screening 1967 Hepatitis C Screening 1967 Urine Albumin 1967 Pneumococcal vaccine (0-64 y ears) (1 of 2 - PCV) 08/26/1973 Hepatitis B Vaccines (1 of 3 - 19+ 3-dose series) 08/26/1986 Zoster Vaccines (1 of 2) 08/26/2017 Mammogram 10/08/2021 10/08/2020, 10/08/2020 Depression Screening (Annual PHQ-2) 06/11/2023 COVID-19 Vaccine (3 - 2022-2 4 season) 2024 10/29/2020, 10/08/2020 Hemoglobin A1C 02/23/2024 11/23/2023, 04/0 02/2024, 06/12/2023, Additional history exists Influenza Vaccine (#1) 2024 Creatinine Level (Kidney Fun ction Test) 09/17/2024 09/18/2023, 10/12/2022, 03/28/2022, Additional history exists Office Visit for Blood Press ure Check / Re-check 11/22/2024 11/23/2023 Visit: Chronic Disease, age 18+ 11/22/2024 Dilated Eye Exam 12/09/2024 12/10/2023 (Per formed elsewhere) Lipid (Cholesterol) Screening 11/22/2028, 06/12/2023, 01/09/2023, Additional history exists DTaP,Tdap,and Td Vaccines (2 - Td or Tdap) 11/09/2033 11/10/2023 Procedures Procedure Name Priority Date/Time Associated Diagnosis [...] CDT Aye Morales M.D. LAB BLOOD ADD-ON [facility] [address] [place] [address], [facility] OW[facility] [place] [address] [place] [address] * (ABNORMAL) Hemoglobin A1c (11/23/2023 12:55 PM [...] M.D. LAB BLOOD ADD-ON Performing Organization Address City/[facility]/ZIP Co de Phone Number [facility] [address] [place] [address], [place] [facility] [facility] in [place] [address] [place] [address] * (ABNORMAL) BMP (Basic Metabolic Panel) (09/01/2013 [...] Recently Relevant to Health Maintenance Care Teams Gathering Machine Setter Relationship Specialty Start Date End Date Aye Morales M.D. [address] [place] [phone] PCP - General Family Medicine 11/19/23
== END 2024-02-13 14:25 | disposition home or self-care (01) ==
PROVIDERS: PCP Family Medicine; Visit Provider Family Medicine
DX: E78.5 Hyperlipidemia, unspecified (principal); E11.69 Type 2 diabetes mellitus with other specified complication; R53.83 Other fatigue
CPT/HCPCS: 80053; 80061; 82043; 82570; 84443

== ENCOUNTER 2024-02-19 16:38 | Outpatient (CLI) | payer BC, SELFPAY ==
--- NOTE | 2024-02-19 16:40 | CRLHL7_ITS ---
For Patients: As a result of the Century Cures Act, medical imaging exams and procedure reports are released immediately into your electronic medical record. You may view this report before your referring provider. If you have questions, please contact your health care provider. BILATERAL SCREENING MAMMOGRAM WITH COMPUTER-AIDED DETECTION AND TOMOSYNTHESIS TECHNIQUE: CC and MLO views were obtained. These mammographic images have been obtained using full-field digital technique. These mammographic images were interpreted with the benefit of computer-aided detection. Breast Tomosynthesis was used in this interpretation. COMPARISON FILM: 10/08/20, 05/28/12, 08/19/10. FINDINGS: The breasts are heterogeneously dense, which may obscure small masses. IMPRESSION: There is no radiographic evidence for malignancy. ASSESSMENT: BI-RADS Category 1: Negative RECOMMENDATION: Routine screening mammogram in 1 year. A lay language report of this examination will be provided to the patient. Bib Chavez M.D. Diagnostic Radiologist [email or web address] SP/Dictated by: Bib Chavez MD @ 02/21/2024 12:34:00 PM (Electronically Signed)
--- OUTSIDE RECORDS SUMMARY | 2024-02-19 16:41 | XMS_ITS | Clinical Summary ---
Author Organization [facility] Address [address] [place] [address] Care Team Providers Care Annealing Operator Name Role Phone Aye Morales M.D. Primary Care Provider Source Comments Patient records contain information from all sites at [facility]. For routine questions regarding patient records, call [phone] during business hours, M-F 8:00 AM - 5:00 PM Central Time. Record requests for emergency care only can be directed to [phone] at any time.[facility] Allergies No known active allergies Medications Medication [...] 12/18/2023 Clinical Communication Department of Family Medicine, [facility], in [place], [place] [address] [place] [address] Aye Morales M.D. 12/05/2023 Clinical Communication Department of Family [facility], [facility], in [place], [place] [address] [place] [phone] Aye Morales M.D. Health Maintenance 12/05/2023 Orders Only Department of Family Medicine, [facility], in [place], [place] [address] [place] [phone] Aye Morales M.D. Diabetes Mellitus Type 2 Hyperglycemia (HCC) (Primary Dx) 12/04/2023 Orders Only [facility] [address] [place] [phone] Aye Morales M.D. Screening Cancer Colon 11/27/[address] [facility], [facility], in [place], [place] [address] [place] [phone] Lashanda Ashton R.M.A. Quality (Diabetes) 11/23/2023 12:48 PM CDT - 11/23/2023 11:59 PM CDT Hospital Encounter Department of Laboratory Medicine in [place], [place] [address] [place] [phone] Aye Morales M.D. Diabetes Mellitus Type 2 Hyperglycemia (HCC); Hyperlipidemia Discharge Disposition: Home or Self Care 11/23/2023 11:30 AM CDT Comprehensive Visit Department of Family Medicine, [facility], in [place], [place] [address] [place] [phone] Aye Morales M.D. Diabetes Mellitus Type 2 Hyperglycemia (HCC) (Primary Dx); General Medical Examination Adult; Hyperlipidemia; Rosacea; Pain Back Thoracic 11/23/2023 Clinical Communication Department of Family Medicine, [facility], in [place], [place] [address] [place] [phone] Aye Morales M.D. Results (Labs) 11/20/2023 Orders Only [facility] [address] [place] [phone] Aye Morales M.D. Screening Cancer Colon from [...] CDT Aye Morales M.D. LAB BLOOD ADD-ON [facility] [address] [place] [address], [facility] OWAT [facility] [place] [address] [place] [address] * (ABNORMAL) Hemoglobin A1c (11/23/2023 12:55 PM [...] M.D. LAB BLOOD ADD-ON Performing Organization Address City/[facility]/ZIP Co de Phone Number [facility] [address] [place] [address], [place] [facility] [facility] [place] [facility] in [place] [address] [place] [address] * (ABNORMAL) BMP (Basic Metabolic Panel) (09/01/2013 [...] Recently Relevant to Health Maintenance Care Teams Annealing Operator Relationship Specialty Start Date End Date Aye Morales M.D. [address] [place] [phone] PCP - General Family Medicine 11/19/23
--- OUTSIDE RECORDS SUMMARY | 2024-02-19 16:41 | XMS_ITS | Encounter Summary ---
Author Organization [facility] Address [address] [place] [address] Care Team Providers Care Product Demonstrator Name Role Phone Aye Morales M.D. Primary Care Provider [phone] Encounter Details Date Type Department Care Team (Late st Contact Info) Description 12/05/2023 Orders Only Department of Family Medicine, [facility], in [place], [place] [address] [place] [phone] Aye Morales M.D. [address], [place] [address] Diabetes Mellitus Type 2 Hyperglycemia [...] Primary documented in this encounter Care Teams Product Demonstrator Relationship Specialty Start Date End Date Aye Morales M.D. [address] [phone] PCP - General Family Medicine 11/19/23 documented as of this encounter
--- OUTSIDE RECORDS SUMMARY | 2024-02-19 16:41 | XMS_ITS | Encounter Summary ---
Author Organization [facility] Address [address] [place] [address] Care Team Providers Care Hand Or Machine Paster Name Role Phone Aye Morales M.D. Primary Care Provider Encounter Details Date Type Department Care Team (Late st Contact Info) Description 11/20/2023 Orders Only [facility] [address] [place] [phone] Aye Morales M.D. [address] [place] [phone] Screening Cancer Colon Social History [...] Colon documented in this encounter Care Teams Hand Or Machine Paster Relationship Specialty Start Date End Date Aye Morales M.D. [address], [place] [phone] PCP - General Family Medicine 11/19/23 documented as of this encounter
--- OUTSIDE RECORDS SUMMARY | 2024-02-19 16:41 | XMS_ITS | Encounter Summary ---
Author Organization [facility] Address [address] [place] [address] Care Team Providers Care Report Developer Name Role Phone Aye Morales M.D. Primary Care Provider Reason for Visit * Reason Onset Date Comments Results 11/23/2023 Labs Encounter Details Date Type Department Care Team (Latest Contact Info) Description 11/23/2023 Clinical Communication Department of Family Medicine, [facility], in [place], [place] [address] [address] Aye Morales M.D. [address], [place] [address] Results (Labs) Social History Tobacco [...] on filedocumented in this encounter Care Teams Report Developer Relationship Specialty Start Date End Date Aye Morales M.D. [address] [place] [phone] PCP - General Family Medicine 11/19/23 documented as of this encounter
--- OUTSIDE RECORDS SUMMARY | 2024-02-19 16:41 | XMS_ITS | Encounter Summary ---
Author Organization [facility] Address [address] [place] [address] Care Team Providers Care Fitter/Welder Name Role Phone Aye Morales M.D. Primary Care Provider Encounter Details Date Type Department Care Team (Latest Contact Info) Description 11/23/2023 12:48 PM CDT - 11/23/2023 11:59 PM CDT Hospital Encounter Department of Laboratory Medicine in [place], [place] [address] [place] [phone] Aye Morales M.D. [address] [place] [address] Diabetes Mellitus Type 2 Hyperglycemia [...] M.D. LAB BLOOD ADD-ON Performing Organization Address [facility] Co de Phone Number [facility] [address] [place] [address], [place] OW[place] [facility] [place] [address] [place] [address] * (ABNORMAL) Hemoglobin A1c (11/23/2023 12:55 PM [...] M.D. LAB BLOOD ADD-ON Performing Organization Address [facility] Co de Phone Number [facility] [address] [place] [address], [place] [facility] [place] [address] [place] [address] documented in this encounter Visit Diagnoses Diagnosis Diabetes Mellitus Type 2 Hyperglycemia (HCC) Hyperlipidemia documented in this encounter Care Teams Fitter/Welder Relationship Specialty Start Date End Date Aye Morales M.D. [address] [place] [address] PCP - General Family Medicine 11/19/23 documented as of this encounter
--- OUTSIDE RECORDS SUMMARY | 2024-02-19 16:41 | XMS_ITS ---
Author Organization [facility] Address [address] [place] [address] Care Team Providers Care Mallet And Die Cutter Name Role Phone Unavailable Unavailable Unavailable Surgery Details Not on file Complications Check Surgery Details section. Procedure Estimated Blood Loss Check Surgery Details section. Procedure Findings Check Surgery Details section. Procedure Specimens Taken Check Surgery Details section.
--- OUTSIDE RECORDS SUMMARY | 2024-02-19 16:41 | XMS_ITS | Clinical Summary ---
Author Organization [employer] [facility] Address [place], [place] [address] Care Team Providers Care Sonar Watchstander Name Role Phone Jaja Garcia RN, INSPECTOR RETURNED MATERIALS Primary Care Provide r Allergies No known [...] Comments Blood Pressure 120/64 05/20/2012 9:02 AM MONONITROTOLUENE OPERATOR Pulse 72 05/20/2012 9:02 AM MONONITROTOLUENE OPERATOR Temperature - - Respiratory Rate 14 05/20/2012 9:02 AM MONONITROTOLUENE OPERATOR Oxygen Saturation - - Inhaled Oxygen Concentration - - Weight 60.3 kg (133 lb) 05/20/2012 9:02 AM MONONITROTOLUENE OPERATOR Height 135.5 cm (4' 5.34) 05/20/2012 9:02 AM CS T Body Mass Index 32.87 05/20/2012 9:02 AM MONONITROTOLUENE OPERATOR Plan of Treatment Health Maintenance Due Date [...] 10/09/19 21, 05/28/2012, 08/19/2010 COVID-19 vaccine series ( - 2022-24 season) 2024 10/29/2020, 10/08/2020 Influenza for age [...] BLOOD IFOBT STOOL Routine 06/14/2023 10:30 AM MONONITROTOLUENE OPERATOR LIPID PANEL Routine 06/12/2023 9:44 AM MONONITROTOLUENE OPERATOR HPV THIN PREP Routine 03/08/2022 10:00 AM CDT XR MAMMO YVES BILAT SCREEN Routine 10/08/2020 10:41 AM CDT Encounter for screening mammogram for malignant neoplasm of breast from Last 3 Months or Most Recently Relevant to Health Maintenance Results * OCCULT BLOOD IFOBT STOOL (06/14/2023 10:30 AM MONONITROTOLUENE OPERATOR) STOOL BLOOD ,IFOBT Negative Negative 06/15/2023 1:16 PM MONONITROTOLUENE OPERATOR [facility] Stool STOOL SPECIMEN / Unknown 06/14/2023 10:30 AM MONONITROTOLUENE OPERATOR 06/15/2023 1:07 PM MONONITROTOLUENE OPERATOR aJja Garcia RN, INSPECTOR RETURNED MATERIALS LABORATORY [facility] [address] [place] [address] * (ABNORMAL) LIPID PANEL (06/12/2023 9:44 AM MONONITROTOLUENE OPERATOR) CHOLESTEROL,TOTAL 233(H) 100 - 199 mg/dL 06/13/2023 12:35 PM MONONITROTOLUENE OPERATOR [facility] Comment: Cholesterol, Total Reference Ranges Desirable <200 mg/dL Borderline 200-239 mg/dL High >=240 mg/dL TRIGLYCERIDES 313(H) <150 mg/dL 06/13/2023 12:35 PM MONONITROTOLUENE OPERATOR [facility] HDL CHOLESTEROL 53 >40 mg/dL 12:35 PM MONONITROTOLUENE OPERATOR [facility] NON-HDL CHOLESTEROL 180(H) <145 mg/dl 06/13/2023 12:35 PM MONONITROTOLUENE OPERATOR [facility] CHOL/HDL RATIO 4.40 <4.50 06/13/2023 12:35 PM MONONITROTOLUENE OPERATOR [facility] LDL CHOLESTEROL 117 <=130 mg/dL 06/13/2023 12:35 PM MONONITROTOLUENE OPERATOR [facility] VLDL CHOLESTEROL 63(H) <=30 mg/dL 06/13/2023 12:35 PM MONONITROTOLUENE OPERATOR [facility] PROVIDER ORDERED STATUS RANDOM 06/13/2023 12:35 PM MONONITROTOLUENE OPERATOR [facility] Blood BLOOD SPECIMEN / Unknown 06/12/2023 9:44 AM MONONITROTOLUENE OPERATOR 06/12/2023 3:17 PM MONONITROTOLUENE OPERATOR Jaja Garcia RN, INSPECTOR RETURNED MATERIALS CHEMISTRY [facility] [address] [place] [address], [facility] [address] [place] [address] * HPV HIGH RISK (03/08/2022 10:00 AM CDT) TYPE 16 Negative Negative 03/14/2022 11:45 AM CDT [facility] TYPE 18 Negative Negative 03/14/2022 11:45 AM CDT [facility] OTHER HIGH RISK TYPES Negative Negative 03/14/2022 11:45 AM CDT [facility] Other (Other) 03/08/2022 10: 00 AM CDT 03/13/2022 8:[address] [facility] - 03/14/2022 11:45 AM CDT HPV types 16, 18, 31, 33, 35, 39, 45, 51, 52, 56, 58, 59, 66 and 68 DNA were undetectable or below the pre-set threshold. Methodology: [email or web address] Chuck 4800 HPV Test Lolita Leon NP MICROBIOLOGY [facility] [address] [place] [address], * XR MAMMO YVES BILAT SCREEN (10/08/2020 [...] AM CDT XR MAMMO YVES BILAT SCREEN [[id number]] CLINICAL HISTORY: ??This is an asymptomatic 55 y.o. patient. INDICATION FOR EXAM: Mammogram Screening. TECHNIQUE: CC & MLO views were obtained. ??This digital study was evaluated with the assistance of Computer-Aided Detection. Breast Tomosynthesis was used in interpretation. COMPARISON FILMS: Yes 05/28/12 [employer] ?? FINDINGS: ??The breasts are heterogeneously dense, which may obscure small masses. ??No suspicious masses or microcalcifications. ??Benign appearing calcifications within both breasts. Jaja Garcia RN, INSPECTOR RETURNED MATERIALS MAMMO from Last 3 Months or Most Recently Relevant to Health Maintenance Care Teams Sonar Watchstander Relationship Specialty Start Date End Date Jaja Garcia RN, INSPECTOR RETURNED MATERIALS PCP - General Nurse Practitioner 04/15/18
--- OUTSIDE RECORDS SUMMARY | 2024-02-19 16:41 | XMS_ITS | Encounter Summary ---
Author Organization [facility] Address [address] [place] [address] Care Team Providers Care Application Dba Name Role Phone Aye Morales M.D. Primary Care Provider Reason for Referral * Outpatient (Routine) - Authorized Specialty Diagnoses / Procedures Referred By Melissa t Referred To Contact Family Medicine Aye Morales M.D. [address] [phone] [facility] Region Referral ID Status Reason Start Date Expiration Date V isits Requested Visits Authorized [id number] Authorized 11/23/2023 05/24/2025 1 1 * Outpatient (Routine) - Authorized Specialty Diagnoses / Procedures Referred By Melissa t Referred To Contact Diagnoses General Medical Examination Adult Procedures BI Breast Screening Bilateral with Tomosynthesis Aye Morales M.D. [address] [place] [phone] [facility] Region Referral ID Status Reason Start Date Expiration Date V isits Requested Visits Authorized [id number] Authorized 11/23/2023 11/22/2024 1 1 * Outpatient (Routine) - Pending Review Specialty Diagnoses / Procedures Referred By Contac t Referred To Contact Diagnoses General Medical Examination Adult Procedures Colonoscopy Aye Morales M.D. [address] [place] [phone] [facility] Region Referral ID Status Reason Start Date Expiration Date V isits Requested Visits Authorized [id number] Pending Review 11/23/2023 11/22/2024 1 1 Reason for Visit * Reason Comments Establish Care * Appointment Request (Routine) - Closed Specialty Diagnoses / Procedures Referred By Melissa t Referred To Contact Family Medicine Referral ID Status Reason Start Date Expiration Date Visits Re quested Visits Authorized [id number] Closed 11/19/2023 11/18/2024 1 1 Encounter Details Date Type Department Care Team (Latest Contact Info) Description 11/23/2023 11:30 AM CDT Comprehensive Visit Department of Family Medicine, [facility], in [place], [place] [address] [place] [phone] Aye Morales M.D. [address], [place] [address] Diabetes Mellitus Type 2 Hyperglycemia [...] I recommend taking a Vitamin D with [place] 3 Fatty Acids. Make sure you get [...] physical. Visit is assisted today by an architect internship. She is here to establish care today. Previously has been seen at [facility] in [place]. She was recently without health insurance so [...] states she received a tetanus shot in [facility] in 2022. She does note some left [...] later patient states she received this in [facility] last year so we did not administer [...] this patient today reconciling medication list via bilingual recruiter and reviewing medical history. documented in this [...] M.D. LAB BLOOD ADD-ON Performing Organization Address [facility] Co de Phone Number [facility] [address] [place] [address], [facility] OWAT [facility] [place] [address] [place] [address] * (ABNORMAL) Hemoglobin A1c (11/23/2023 12:55 PM [...] M.D. LAB BLOOD ADD-ON Performing Organization Address City/[facility]/ZIP Co de Phone Number [facility] [address] [place] [address], [facility] OWAT [facility] [place] [address] [place] [address] documented in this encounter Visit Diagnoses Diagnosis Diabetes Mellitus Type 2 Hyperglycemia (HCC)- Primary General Medical Examination Adult Hyperlipidemia Rosacea Pain Back Thoracic documented in this encounter Care Teams Application Dba Relationship Specialty Start Date End Date Aye Morales M.D. [address] [place] [phone] PCP - General Family Medicine 11/19/23 documented as of this encounter
--- OUTSIDE RECORDS SUMMARY | 2024-02-19 16:41 | XMS_ITS | Encounter Summary ---
Author Organization [facility] Address [address] [place] [address] Care Team Providers Care Geological Manager Name Role Phone Aye Morales M.D. Primary Care Provider Reason for Visit * Reason Onset Date Comments Health Maintenance 12/05/2023 Encounter Details Date Type Department Care Team (Latest Contact Info) Description 12/05/2023 Clinical Communication Department of Family Medicine, [facility], in [place], [place] [address] [place] [address] Aye Morales M.D. [address] [place] [address] Health Maintenance Social History Tobacco [...] patient.This is the 1st contact by the [facility] team to schedule preventive care services. The preventive care topics I outreached about include: Cervical Cancer Screening Hemoglobin A1C and Urine, Albumin Mammogram The outcome of this communication includes: Left Message and Sent Letter The [facility] team will contact the patient again in [...] on filedocumented in this encounter Care Teams Geological Manager Relationship Specialty Start Date End Date Aye Morales M.D. [address] [place] [address] PCP - General Family Medicine 11/19/23 documented as of this encounter
--- OUTSIDE RECORDS SUMMARY | 2024-02-19 16:41 | XMS_ITS | Encounter Summary ---
Author Organization [facility] Address [address] [place] [address] Care Team Providers Care [employer] Vault Custodian Name Role Phone Aye Morales M.D. Primary Care Provider [phone] Encounter Details Date Type Department Care Team (Late st Contact Info) Description 12/18/2023 Clinical Communication Department of Family Medicine, [facility], in [place], [place] [address], [place] [address] Aye Morales M.D. [address] [place] [address] Social History Tobacco Use Types [...] on filedocumented in this encounter Care Teams Trust Vault Custodian Relationship Specialty Start Date End Date Aye Morales M.D. [address] [place] [address] PCP - General Family Medicine 11/19/23 documented as of this encounter
--- OUTSIDE RECORDS SUMMARY | 2024-02-19 16:41 | XMS_ITS | Data Portability ---
Author Organization [place] - [facility] Hospital[facility]strid hinsonFEL[facility] OFF[facility] Address [address] [place] [address] [place] [address] Assessment No assessment recorded. Plan of Treatment Reminders Order Date Submit Date Provider Last Modified By Organization Details Last Modified Time Details Appointments LAB WORK 2023 01:30P M Not available Not available Not available Any 30 2023 01:30P M Not available Not available Not available Lab lipid panel, serum 2022 023 [facility] Office, [address] [place] [address] [place], [address], 10/13/2022 13:32:50 CMP, serum or plasma 2022 023 [facility], [address] [place], [place] [address], [address], 10/13/2022 13:32:50 glycohemo globin, total, blood 2022 023 [facility], [address] [place], [place] [address], [address], 10/16/2022 10:45:01 microalbu min/creat inine, ratio panel, urine 2022 023 [facility], [address] [place], [place] [address], [address], 10/13/2022 12:33:36 fecal occult blood, immunoass ay, stool 2022 024 [facility], [address] [place], [place] [address], [place], [address], 06/15/2023 15:14:40 glycohemo globin, total, blood 2022 024 [facility] Office, [address] [place], [place] [address], [place], [address], 06/12/2023 23:48:03 microalbu min/creat inine, ratio panel, urine 2022 024 [facility] Office, [address] [place], [place] [address], [address], 09/20/2023 09:12:34 BMP, serum or plasma 2022 024 [facility] Office, [address] [place], [place] [address], [place], [address], 09/19/2023 11:32:59 glycohemo globin, total, blood 2022 024 [facility] Office, [address] [place], [place] [address], [place], [address], 09/19/2023 11:42:34 lipid panel, serum - FASTING 2022 023 [facility] Office, [address] [place], [place] [address], [place], [address], 01/10/2023 04:41:58 H pylori Ag, stool 2023 024 [facility] Office, [address] [place], [place] [address], [place], [address], 11/28/2023 04:02:13 glycohemo globin, total, blood 2023 [email or web address] [place] [address] Office, [address] [place], [place] [address], [place], [address], 01/02/2024 12:58:30 lipid panel, serum 2023 024 [email or web address] 4 [place] [facility], [address] [facility] [place], [address], 01/02/2024 12:58:37 CMP, serum or plasma 2023 024 [email or web address] 4 [place] [facility], [address] [facility] [place], [address], 01/02/2024 12:58:45 Referral community health worker referral - Discussed in person with JT. Just need one update in 2 weeks with numbers and to confirm she is taking correct doses of medicatio ns and what her BGs have been. 2022 023 [email or web address] Not available 07/25/2022 17:25:51 diabetic ophthalmo logy referral 2023 024 [email or web address] Not available 09/28/2023 15:01:37 Procedures None recorded. Surgeries None recorded. Imaging None recorded. Medication Orders glipizide ER 2.5 mg tablet, extended release 24 hr 2022 023 [email or web address] [facility], [address], [place], [address], 09/25/2023 15:24:59 metformin ER 500 mg tablet,ex tended release 24 hr 2022 023 [facility], [address], [place], [address], 01/15/2023 12:46:04 atorvasta tin 10 mg tablet [email or web address] [place] [address], [address], [place], [address], 10/18/2022 11:53:35 metronida zole 0.75 % topical cream 2022 023 [facility], [place], [address] [place], [address], 09/12/2022 20:40:55 doxycycli ne monohydra te 50 mg capsule [address], [place], [address] [facility], [place], [address], 09/25/2023 15:27:56 glipizide ER 2.5 mg tablet, extended release 24 hr [address], [address], [place], [address], 09/25/2023 15:24:59 metformin ER 500 mg tablet,ex tended release 24 hr [address], [address], [place], [address], 10/18/2022 11:54:28 atorvasta tin 20 mg tablet 2022 023 [facility], [address], [place], [address], 10/18/2022 11:49:36 famotidin e 20 mg tablet 2023 024 [facility], [address], [place], [address], 09/25/2023 15:39:28 metformin ER 500 mg tablet,ex tended release 24 hr 2023 024 [facility], [address], [place], [address], 09/25/2023 15:27:33 glipizide ER 2.5 mg tablet, extended release 24 hr 2023 024 [facility], [address], [place], [address], 09/25/2023 15:27:34 atorvasta tin 20 mg tablet 2023 04 024 [facility] [place], [address], [place], [address], 09/25/2023 15:28:35 Patient TargetsNo targets recorded. Patient Instructions Encounter Date Encounter Id Patient Instructions Last Modified By Organization Details Last Modified Time 10/18/2022 [id number] diabetes tipo 2: instrucciones de cuidado - [type 2 diabetes: care instructions] [email or web address] Not available 10/18/2022 11:04:02 12/19/2022 [id number] Return in 1 year. [email or web address] Not availab le 12/19/2022 20:40:35 09/25/2023 [id number] Start famotidine for the acid reflux Will do stool test Restart diabetes meds - recheck in 3 months [email or web address] Not available 09/25/2023 15:43:14 Reason for Referral Community Health Worker Refe rral for Type 2 diabetes mellitus New diagnosis. Please invite to DM classes and see what questions she has. She has Viviendo Con Diabetes Referring Physician: Jaja Garcia, Family Medicine, Encounter Date: 12/26/2021 Community Health Worker Refe rral for Hyperglycemia due to type 2 diabetes mellitus Patient needs quite a bit of support: needs to learn glucometer usage, medication coaching (see plan and letter for details). Needs full DM flowsheet of educationr regarding diagnosis, eating for blood sugar control, post-prandial exercise, troubleshooting hypoglycemia. We will move to insulin in June if we do not get significant gains in BG control. Her diet is very high in simple carbs and fruits so there is a real possibility we can bring her BGs down with diet and oral medicatons. Referring Physician: Jaja Garcia, Family Medicine, Encounter Date: 04/19/2022 Community Health Worker Refe rral for Hyperglycemia due to type 2 diabetes mellitus Discussed in person with JT. Just need one update in 2 weeks with numbers and to confirm she is taking correct doses of medications and what her BGs have been. Referring Physician: Jaja Garcia, Family Medicine, Encounter Date: 07/24/2022 Diabetic Ophthalmology Refer ral for Type 2 diabetes mellitus without complication Referring Physician: Chayito Campos, Family Medicine, Encounter Date: 09/25/2023 Results Created Date Observation Date Name Description Value Unit Range Abnormal Flag Note LastModifiedBy Organization Detail LastModifiedTime 06/15/2023 fecal occul t blood , immun oassa y, stool ifobt neg neg normal Not Available [facility] [address] [place], [address], 06/15/2023 15:02:48 10/13/19 23 10/12/2022 glyco hemog lobin , total , blood microalbumin ratio 18.4 Not Available [facility] [address] [facility] [place], [address], 10/16/2022 10:45:01 10/13/19 23 10/12/2022 glyco hemog lobin , total , blood A1C hemoglobin 6.4 Not Available [facility] Office [address] [facility] [place], [address], 10/16/2022 10:45:01 10/13/19 23 10/12/2022 lipid panel , serum creatinine 0.85 Not Available [address] [place], [address], 10/13/2022 13:32:50 10/13/19 23 10/12/2022 lipid panel , serum ALT 27 Not Available [address] [place], [address], 10/13/2022 13:32:50 10/13/19 23 10/12/2022 lipid panel , serum total cholesterol 212 high Not Available [address] [place], [address], 10/13/2022 13:32:50 10/13/19 23 10/12/2022 lipid panel , serum triglyceride s 510 high Not Available [address] [place], [address], 10/13/2022 13:32:50 10/13/19 23 10/12/2022 lipid panel , serum HDL 45 Not Available [place] [address] [place], [address], 10/13/2022 13:32:50 10/13/19 23 10/12/2022 lipid panel , serum LDL >400 inval id >400 Not Available [address] [place], [address], 10/13/2022 13:32:50 10/13/19 23 10/12/2022 CMP, serum or plasm a creatinine 0.85 Not Available [address] [place], [address], 10/13/2022 13:20:19 10/13/19 23 10/12/2022 CMP, serum or plasm a ALT 27 Not Available [place] [address] [place], [address], 10/13/2022 13:20:19 10/13/19 23 10/12/2022 CMP, serum or plasm a total cholesterol 212 high Not Available [place] [address] [place], [address], 10/13/2022 13:20:19 10/13/19 23 10/12/2022 CMP, serum or plasm a triglyceride s 510 high Not Available [address] [place], [address], 10/13/2022 13:20:19 10/13/19 23 10/12/2022 CMP, serum or plasm a HDL 45 Not Available [place] [address] [place], [address], 10/13/2022 13:20:19 10/13/19 23 10/12/2022 CMP, serum or plasm a LDL >400 inval id >400 Not Available [address] [place], [address], 10/13/2022 13:20:19 10/13/19 23 10/12/2022 micro album in/cr eatin ine, ratio panel , urine microalbumin ratio 18.4 Not Available [facility] [address] [place], [address], 10/13/2022 12:15:25 10/13/19 23 10/12/2022 micro album in/cr eatin ine, ratio panel , urine A1C hemoglobin 6.4 Not Available [facility] [address] [place], [address], 10/13/2022 12:15:25 01/10/20 23 01/09/2023 lipid panel , serum total cholesterol 228 high Not Available [facility] [address] [place], [address], 01/09/2023 18:12:38 01/10/20 23 01/09/2023 lipid panel , serum triglyceride s 434 high Not Available [facility] [address] [place], [address], 01/09/2023 18:12:38 01/10/20 23 01/09/2023 lipid panel , serum HDL 46 Not Available [facility] [address] [place], [address], 01/09/2023 18:12:38 01/10/20 23 01/09/2023 lipid panel , serum LDL invali d LDL when trig >400 Not Available [facility] [address] [place], [address], 01/09/2023 18:12:38 06/12/19 24 06/12/2023 glyco hemog lobin , total , blood A1C 7.4 % <7 high Not Available [facility] [address] [place], [address], 06/12/2023 17:36:07 06/12/19 24 06/12/2023 lipid panel , serum total cholesterol 233 high Not Available [facility] [address] [place], [address], 06/13/2023 14:26:08 06/12/19 24 06/12/2023 lipid panel , serum triglyceride s 313 high Not Available [facility] [address] [place], [address], 06/13/2023 14:26:08 06/12/19 24 06/12/2023 lipid panel , serum HDL 53 Not Available [facility] [address] [place], [address], 06/13/2023 14:26:08 06/12/19 24 06/12/2023 lipid panel , serum LDL 117 Not Available [facility] [address] [place], [address], 06/13/2023 14:26:08 09/18/19 24 09/18/2023 micro album in/cr eatin ine, ratio panel , urine micro ratio urine album in below measu remen t range , unabl e to calcu late Not Available [facility] [address] [place], [address], 09/20/2023 09:05:38 09/18/19 24 09/18/2023 glyco hemog lobin , total , blood A1C 11.9 high Not Available [facility] [address] [place], [address], 09/19/2023 11:05:50 09/18/19 24 09/18/2023 BMP, serum or plasm a creatinine 0.87 Not Available [facility] [address] [place], [address], 09/19/2023 11:28:54 09/18/19 24 09/18/2023 BMP, serum or plasm a glucose 652 critical high Not Available [place] [facility] [address] [place] [address], [address], 09/19/2023 12:08:00 09/18/19 24 09/18/2023 BMP, serum or plasm a sodium 131 low Not Available [address], [address], 09/19/2023 12:08:00 Result Notes None recorded. Problems Name Problem SNOMED Code Status Onset Date Resolution Date Notes Provider Name and Address Organization Details Recorded Time Hypergly cemia due to type 2 diabetes mellitus 78780227510 9109 Completed 202110/18/2022 Removal Reason: Control achieved . 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 Procedures Surgical History Date Name Laterality Status Provider Name and Address Organization Details Recorded Time 03/08/2028 Date of Last Pap Smear completed Jaja Garcia NP [address] [place] [address], [address], [email or web address] 04/20/2022 11:35:46 Imaging Results None recorded. Procedure Notes None recorded. Medical Equipment None Reported. Allergies No known drug allergies Medications Name Sig Start Date Stop Date Status Note LastModified by Organization Details LastModified Time metformin 500 mg tablet TAKE 2 TABLETS BY MOUTH EVERY DAY IN THE EVENING WITH MEAL FOR 2 WEEKS 09/24 completed on ER Not Available Not Available Not Available nystatin 100,000 unit/mL oral suspension TAKE 1 ML BY MOUTH THREE TIMES DAILY SWISH AND SPIT 09/24 completed Not Available Not Available Not Available atorvastati n 20 mg tablet TAKE 1 TABLET EVERY DAY BY ORAL ROUTE. active Not Available Not Available No t Available atorvastati n 10 mg tablet TAKE 1 TABLET EVERY DAY BY ORAL ROUTE. 10/18 completed Not Available Not Available Not Available fluconazole 150 mg tablet TAKE 1 TABLET BY MOUTH EVERY 3 DAYS FOR 2 DOSES. MAY REPEAT SECOND DOSE 72 HOURS AFTER FOR 1 DOSE IF SYMPTOMS PERSIST 09/24 completed Not Available Not Available Not Available metronidazo le 0.75 % (37.5 mg/5 gram) vaginal gel INSERT 1 APPLICATO RFUL EVERY DAY BY VAGINAL ROUTE FOR 5 DAYS. 03/29 completed Not Available Not Available Not Available prednisone 20 mg tablet TAKE 40MG 2X20MG ORALLY EVERY DAY FOR 5 DAYS 09/24 completed Not Available Not Available Not Available sulfacetami de sodium-sulf ur 10 %-5 % (w/w) topical cleanser active Not Available Not Available Not Available doxycycline monohydrate 50 mg capsule TAKE 1 CAPSULE BY MOUTH ONCE A DAY FOR ONE MONTH. TAKE WITH FOOD AND PROBIOTIC active Not Available Not Available No t Available famotidine 20 mg tablet TAKE 1 TABLET TWICE A DAY BY ORAL ROUTE. active Not Available Not Available No t Available glipizide ER 2.5 mg tablet, extended release 24 hr TAKE 2 TABLETS BY MOUTH EVERY DAY FOR DIABETES active Not Available Not Available No t Available metronidazo le 0.75 % topical cream APPLY A THIN LAYER TO THE AFFECTED AREA(S) BY TOPICAL ROUTE 2 TIMES PER DAY IN THE MORNING AND EVENING 2022 active Not Available Not Available Not Avai lable ibuprofen 200 mg tablet take 1 tablet by oral route every 6 hours as needed with food 02/17 completed Not Available Not Available Not Available metformin ER 500 mg tablet,exte nded release 24 hr TAKE 3 TABLETS BY MOUTH EVERY EVENING active Not Available Not Available No t Available metronidazo le 0.75 % topical gel apply thin roofing layer to two times a day to clean face 12/26 completed Not Available Not Available Not Available naproxen 500 mg tablet TK 1 T PO BID 12/26 completed Not Available Not Available Not Available azelaic acid 15 % topical gel active Not Available Not Available Not Available minocycline 50 mg tablet take 1 tablet by oral route every 12 hours 02/17 completed Not Available Not Available Not Available Vitals Date Recorded Body height Body mass index (BMI) Body weight Heart rate Systolic blood pressure Diastolic blood pressure Provider Name and Address Organization Details Last Updated DateTime 3 149.86 cm 28.3 kg/m2 15066.9 3 g 72 /min 123 mm[Hg] 70 mm[Hg] Jaja Garcia, GRACIE [address] [place], [address], [facility] 3 11:16:56 Date Recorded Body height Provider Name an d Address Organization Details Last Updated DateTime 09/12/2022 149.86 cm DWAYNE WILLIAM CNP [address] [place], [address], [facility] 09/12/2022 20:30:42 Date Recorded Body height Body mass index (BMI) Body weight Body temperature Oxygen saturation Oxygen saturation in Arterial blood by Pulse oximetry Respiratory rate Heart rate Systolic blood pressure Diastolic blood pressure Provider Name and Address Organization Details Last Updated DateTime 4 149.86 cm 8.9 kg/m2 29293.0 6 g 96.9 [degF] 99 % 99 % 22 /min 72 /min 137 mm[Hg] 88 mm[Hg] Regi [place] [facility] 4 15:11:31 Social History Question Answer Notes LastModified by Organizat ion Details LastModified Time Tobacco Smoking Status Never Smoker Jaja Garcia, GRACIE [address] [place], [address], [facility] 08/02/2020 11:43:27 What Is Your Level Of Alcohol Consumption? None [email or web address] Information not available 03/08/2022 Sex: Unknown Functional Status None recorded. Mental Status None recorded. Family History Relationship Description Onset Age of this Age Resolved Age Notes Father No current problems or disability Mother No current problems or disability Medical History No medical history recorded. Gynecological History Statement/Question Response Abnormal Pap N Date of Last Pap Smear 03/08/2028 Current Control Method Menopause Obstetrics History GPAL:G 2 P 0 0 0 2 Type Value Living 2 Total 2 Immunizations Vaccine Type Date Status Provider Name and Address Organization Details Recorded Time COVID-19, mRNA, LNP-S, PF, 30 mcg/0.3 mL dose 10/08/2020 completed Jaja Garcia NP [address] [place] [address], [address], [facility] [facility] 04/19/2022 14:05:37 COVID-19, mRNA, LNP-S, PF, 30 mcg/0.3 mL dose 10/29/2020 completed Jaja Garcia NP [address] [place] [address], [address], [facility] 04/19/2022 14:05:37 Past Encounters Encounter ID Performer Location Encounter Start Date Encounter Closed Date Diagnosis/Indication Diagnosis SNOMED-CT Code Diagnosis ICD10 Code [id number] Jaja Garcia NP [facility] [address] [place] [address] 08/02/2020 11:31:42 08/02/2020 12:57:55 Adult health examination 667463147 Z00.00 Screening for cardiovascular system disease 541518685 Z13.6 Screening for malignant neoplasm of colon 322601824 Z12.11 Screening mammography 24 733595 Z12.31 Prediabetes 298840577 R7 3.03 Rosacea 245211590 L71.9 [id number] Jaja Garcia NP [facility] [address] [place] [address] 12/26/2021 10:24:03 12/26/2021 11:21:58 Type 2 diabetes mellitus 95052249 E11.9 Dyslipidemia 715069218 E 78.5 [id number] Lolita Leon NP [facility] [address] [place] [address] 03/08/2022 10:31:23 03/08/2022 11:33:07 Screening for malignant neoplasm of breast 899773633 Z12.39 Screening for malignant neoplasm of cervix 019890883 Z12.4 Vaginal discharge 795461 006 N89.8 [id number] Jaja Garcia NP [facility] [address] [place], [place] [address] [address] 04/19/2022 13:34:42 04/19/2022 14:38:14 Hyperglycemia due to type 2 diabetes mellitus 0024391647 15658 E11.65 [id number] Jaja Garcia NP [facility] [address] [place], [place] [address] [address] 07/24/2022 10:53:49 07/24/2022 11:31:32 Hyperglycemia due to type 2 diabetes mellitus 6784868620 98720 E11.65 [id number] DWAYNE WILLIAM CNP [place] [facility] [address] [place], [place] [address] [address] 09/12/2022 20:20:45 09/12/2022 20:45:31 Rosacea, erythematous telangiectatic type 031908 L71.8 [id number] [facility] Garcia [facility] [address] [place] [address] 10/18/2022 10:59:45 10/18/2022 15:31:58 Type 2 diabetes mellitus without complication 004178797 E11.9 Mixed hypercholesterolemia and hypertriglyceridemia 613272705 E78.2 Screening for malignant neoplasm of colon 199771399 Z12.11 [id number] DWAYNE WILLIAM CNP [place] [facility] [address] [place], [place] [address] [address] 12/19/2022 20:24:05 12/19/2022 20:42:24 Rosacea, erythematous telangiectatic type 236465 L71.8 [id number] CHAYITO CAMPOS MD [facility] [address] [place] [address] 09/25/2023 15:07:33 09/25/2023 15:51:38 Type 2 diabetes mellitus without complication 794631484 E11.9 Mixed hypercholesterolemia and hypertriglyceridemia 115100169 E78.2 Gastroesop hageal reflux disease without esophagitis 229201849 K21.9 Health Concerns Section Related Observation LastModified by Organization Detai ls LastModified Time None Recorded Concern Status LastModified by Organization Details LastModified Time None Recorded Advance Directives Directive None Recorded Payers Encounter Date Sequence Insurance Name Policy Number Policy Rangel Covered Member ID Rangel Member ID Guarantor Name 07/24/2022 SLIDING FEE SCHEDULE - DISCOUNT Jenni Holloway Terence 09/12/2022 SLIDING FEE SCHEDULE - DISCOUNT Jenni Rodrigueza Terence 10/18/2022 SLIDING FEE SCHEDULE - DISCOUNT Jenni Rodrigueza Terence 12/19/2022 SLIDING FEE SCHEDULE - DISCOUNT Jenni Rodrigueza Terence 09/25/2023 SLIDING FEE SCHEDULE - DISCOUNT Jenni Holloway Terence Notes Date Note Type Note Provider Name and Address Organization Details Recorded Time 07/24/2022 text/html HPI Notes: 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 Jenni has been supported by our CHW JTerrell with improving BGs: mostly at goal fasting but post-prandial values elevated while she was taking her medications. Patient asked to proceed with increase Glipizide ER to 5mg ad Metformin to full 2g/day dose in early May. However, patient did not do this. Attempts to reach out to patient in May and June by our CHW were not successful. Additionally, she has not picked up her medications from the pharmacy after they ran out last month. Patient was not sure how to get these refills. Lost the paper I had given her last visit with dose increases. Did not have any side effects or hypoglycemic symptoms with her medications. Currently asymptomatic: no polydipsia/polyuria /weight changes. No recent infections. Reports good mood. Spot 234mg/dl 1 hour after eating. Fasting this morning was 178mg/dl. Numbers at home have been typically in high 100s - high 200s. Some low 300s. Trying her best to reduce carbohydrates and do routine exercise. Loves walking. Jaja Garcia, GRACIE [address] [place], [address], [facility] 07/24/2022 17:15:21 09/12/2022 text/html HPI Notes: Diane neely presents for chronic rosacea on her face that causes itching. 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 Patient could not attend today's visit so we had an abbreviated phone call. Since our last visit, patient has seen dermatology DISPATCH MACHINE RUNNER Tiffanie William and begun treatment for rosacea (Doxy + MetroGel). Patient's A1C has decreased from 14.9% to 6.4%. Alk Phos has normalized. GFR has increased from 67 to 81. Labs most notable now for moderately elevated triglycerides (510; nonfasting). Patient is prescribed a moderate statin (Atorva 10). LDL cannot be calculated. She does report 100% adherence to this. No known high-sugar foods or ETOH. Tolerating medications well; no hypoglycemia. Has been walking much more. Feels well; no concerns. She is extremely pleased to hear her results. Jaja Garcia, GRACIE [address] [place], [address], [facility] 10/18/2022 11:58:30 12/19/2022 text/html HPI Notes: Diane neely is returning for follow up on rosacea. Her acne bumps have cleared and is needing a refill of the metronidazole cream. 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 last visit telephone in 10/2022 - at that time she had recently increased diabetes meds to be taking metformin ER 2000mg daily and Glipizide ER 5 daily. Patient reports that she has been taking 3 metformin daily - reports that taking 4 caused irritation. Tolerates the 1500mg dose Ran out of glipizide a while ago. Has not been checking her blood gluose levels Also c/o GERD. Has sensation of acid in the stomach in the morning - most days. Has had this for many years. Omeprazole tried helped. No black stools. No smoking. Some coffee occasional. No alcohol. CHAYITO CAMPOS MD [address] [place], [address], [facility] - [facility] 09/26/2023 22:55:27 OBGyn Episode No OBEpisode recorded.
--- OUTSIDE RECORDS SUMMARY | 2024-02-19 16:41 | XMS_ITS | Encounter Summary ---
Author Organization [facility] Address [address] [place] [address] Care Team Providers Care Joint Yarner Name Role Phone Aye Morales M.D. Primary Care Provider Reason for Visit * Reason Onset Date Comments Quality 11/27/2023 Diabetes Encounter Details Date Type Department Care Team (Latest Contact Info) Description 11/27/2023 Clinical Communication Department of Family Medicine, [facility], in [place], [place] [address] [place] [address] Lashanda Ashton, R.M.A. Quality (Diabetes) [...] Primary documented in this encounter Care Teams Joint Yarner Relationship Specialty Start Date End Date Aye Morales M.D. [address] [place] [phone] PCP - General Family Medicine 11/19/23 documented as of this encounter
--- OUTSIDE RECORDS SUMMARY | 2024-02-19 16:41 | XMS_ITS | Referral Summary ---
Author Organization [facility] Address [address] [place] [address] Care Team Providers Care Animal Cruelty Investigator Name Role Phone Aye Morales M.D. Primary Care Provider Source Comments Patient records contain information from all sites at [facility]. For routine questions regarding patient records, call [phone] during business hours, M-F 8:00 AM - 5:00 PM Central Time. Record requests for emergency care only can be directed to [phone] at any time.[facility] Encounters Date Type Department Care Team Description 12/18/2023 Clinical Communication Department of Family Medicine, [facility], in [place], [place] [address] [address] Aye Morales M.D. 12/05/2023 Clinical Communication Department of Family Medicine, [facility], in [place], [place] [address] [phone] Aye Morales M.D. Health Maintenance 12/05/2023 Orders Only Department of Family Medicine, [facility], in [place], [place] [address] [address] Aye Morales M.D. Diabetes Mellitus Type 2 Hyperglycemia (HCC) (Primary Dx) 12/04/2023 Orders Only [facility] [address] [id number] Aye Morales M.D. Screening Cancer Colon 11/27/2023 Clinical Communication Department of Family [facility], [facility], in [place], [place] [address] [address] Lashanda Ashton R.M.A. Quality (Diabetes) 11/23/2023 Clinical Communication Department of Family Medicine, [facility], in [address] [address] Aye Morales M.D. Results (Labs) 11/23/2023 12:48 PM CDT - 11/23/2023 11:59 PM CDT Hospital Encounter Department of Laboratory Medicine in [address] [address] Aye Morales M.D. Diabetes Mellitus Type 2 Hyperglycemia (HCC); Hyperlipidemia Discharge Disposition: Home or Self Care 11/23/2023 11:30 AM CDT Comprehensive Visit Department of [facility], [facility], in [address] [address] Aye Morales M.D. Diabetes Mellitus Type 2 Hyperglycemia (HCC) (Primary Dx); General Medical Examination Adult; Hyperlipidemia; Rosacea; Pain Back Thoracic 11/20/2023 Orders Only [facility] [address] [place] [phone] Aye Morales M.D. Screening Cancer Colon from [...] CDT Aye Morales M.D. LAB BLOOD ADD-ON [facility] [address] [place] [address], [place] [facility] [facility] in [place] [address] [place] [address] * (ABNORMAL) Hemoglobin A1c (11/23/2023 12:55 PM [...] CDT Aye Morales M.D. LAB BLOOD ADD-ON [facility] [address] [place] [address], [place] [employer] [facility] in [place] [address] [place] [address] * (ABNORMAL) BMP (Basic Metabolic Panel) (09/01/2013 [...] Recently Relevant to Health Maintenance Care Teams Animal Cruelty Investigator Relationship Specialty Start Date End Date Aye Morales M.D. [address] [place] [phone] PCP - General Family Medicine 11/19/23
--- OUTSIDE RECORDS SUMMARY | 2024-02-19 16:41 | XMS_ITS | Encounter Summary ---
Author Organization [facility] Address [address] [place] [address] Care Team Providers Care Biomed Tech Name Role Phone Aye Morales M.D. Primary Care Provider Encounter Details Date Type Department Care Team (Late st Contact Info) Description 12/04/2023 Orders Only [facility] [address] [place] [id number] Aye Morales M.D. [address] [place] [address] Screening Cancer Colon Social History [...] Colon documented in this encounter Care Teams Biomed Tech Relationship Specialty Start Date End Date Aye Morales M.D. [address] [place] [address] PCP - General Family Medicine 11/19/23 documented as of this encounter
== END 2024-02-19 16:39 | disposition home or self-care (01) ==
LOC: MAMMO 16:39
PROVIDERS: PCP Family Medicine; Visit Provider Family Medicine
DX: Z12.31 Encounter for screening mammogram for malignant neoplasm of breast (principal); R92.2 Inconclusive mammogram
CPT/HCPCS: 77063; 77067; T1013

== ENCOUNTER 2024-06-09 09:21 | Outpatient (CLI) | payer BC, SELFPAY | END 2024-06-09 09:22 | disposition home or self-care (01) | LOC: NFLDREF 06-10 11:45 | PROVIDERS: PCP Family Medicine; Referring Provider Family Medicine; Visit Provider Family Medicine | DX: E78.5 Hyperlipidemia, unspecified (principal); E11.69 Type 2 diabetes mellitus with other specified complication | CPT/HCPCS: 80053; 80061 ==

== ENCOUNTER 2024-07-29 07:58 | Outpatient (CLI) | payer BC, SELFPAY ==
--- NOTE | 2024-07-29 09:42 | P.ANES_ITS ---
Anesthesia Charges Start Date/Time Anesthesia Start Date: 07/29/24 Anesthesia Start Time: 09:06 Stop Date/Time Anesthesia Stop Date: 07/29/24 Anesthesia Stop Time: 09:38 Coding CPT Codes CPT Codes: ANDRZEJ LWJonathan INTST NDSC NOS - 20889 ([id number]) P2 - PATIENT W/MILD SYST DISEASE, QX - EXERCISE TEACHER SVC W/ MD MED DIRECTION, QK - CAR ESCORT 2-4 CNCRNT ANES PROC
--- NOTE | 2024-07-29 09:42 | W.ANESCHARGE ---
Anesthesia Charges Start Date/Time Anesthesia Start Date: 07/29/24 Anesthesia Start Time: 09:06 Stop Date/Time Anesthesia Stop Date: 07/29/24 Anesthesia Stop Time: 09:38 Coding CPT Codes CPT Codes: ANDRZEJ LWJonathan INTST NDSC NOS - [id number] ([id number]) P2 - PATIENT W/MILD SYST DISEASE, QX - SHREDDER PICKER SVC W/ MD MED DIRECTION, QK - KNOTTING MACHINE OPERATOR PORTABLE 2-4 CNCRNT ANES PROC
--- NOTE | 2024-07-29 10:12 | P.ANES_ITS ---
Anesthesia Charges Start Date/Time Anesthesia Start Date: 07/29/24 Anesthesia Start Time: 09:06 Stop Date/Time Anesthesia Stop Date: 07/29/24 Anesthesia Stop Time: 09:38 Coding CPT Codes CPT Codes: ANDRZEJ LWR INTST NDSC NOS - [id number] ([id number]) P2 - PATIENT W/MILD SYST DISEASE, QK - GRANTS SPECIALIST 2-4 CNCRNT ANES PROC, QX - HOG DROPPER SVC W/ MD MED DIRECTION
--- NOTE | 2024-07-29 10:12 | W.ANESCHARGE ---
Anesthesia Charges Start Date/Time Anesthesia Start Date: 07/29/24 Anesthesia Start Time: 09:06 Stop Date/Time Anesthesia Stop Date: 07/29/24 Anesthesia Stop Time: 09:38 Coding CPT Codes CPT Codes: ANDRZEJ LWR INTST NDSC NOS - 95120 ([id number]) P2 - PATIENT W/MILD SYST DISEASE, QK - HEAVY EQUIPMENT OPERATING ENGINEER 2-4 CNCRNT ANES PROC, QX - CUSTOMER SERVICE LEADER SVC W/ MD MED DIRECTION
== END 2024-07-29 07:59 | disposition home or self-care (01) ==
PROVIDERS: PCP Family Medicine; Visit Provider Surgery
DX: Z12.11 Encounter for screening for malignant neoplasm of colon (principal); D12.2 Benign neoplasm of ascending colon
CPT/HCPCS: 00811; 45385; 88305; T1013; J2704

== ENCOUNTER 2024-08-15 09:24 | Outpatient (CLI) | payer BC, SELFPAY ==
[2024-08-15 15:41] LABS: Chlamydia DNA Amplified* NOT DETECTED (No Detected); GC DNA Amplified* NOT DETECTED (No Detected)
== END 2024-08-15 09:25 | disposition home or self-care (01) ==
LOC: NFLDREF 09:26
PROVIDERS: PCP Family Medicine; Visit Provider Family Medicine
DX: N89.8 Other specified noninflammatory disorders of vagina (principal)
CPT/HCPCS: 87491; 87591; T1013

== ENCOUNTER 2024-09-29 11:10 | Outpatient (CLI) | payer BC, SELFPAY | END 2024-09-29 11:11 | disposition home or self-care (01) | LOC: NFLDREF 09-30 15:28 | PROVIDERS: PCP Family Medicine; Referring Provider Family Medicine; Visit Provider Family Medicine | DX: E78.5 Hyperlipidemia, unspecified (principal); E11.65 Type 2 diabetes mellitus with hyperglycemia; Z79.84 Long term (current) use of oral hypoglycemic drugs | CPT/HCPCS: 80053; 80061 ==

== ENCOUNTER 2025-03-10 07:30 | Outpatient (CLI) | payer OTHER, SELFPAY | END 2025-03-10 07:31 | disposition home or self-care (01) | LOC: NFLDREF 03-15 07:48 | PROVIDERS: PCP Family Medicine; Referring Provider Family Medicine; Visit Provider Family Medicine | DX: E11.69 Type 2 diabetes mellitus with other specified complication (principal); E78.5 Hyperlipidemia, unspecified; R74.8 Abnormal levels of other serum enzymes; R53.83 Other fatigue | CPT/HCPCS: 80053; 80061; 82043; 82570 ==